=== PATIENT | male | born 1995 | race African-American/Black ===

== ENCOUNTER 2017-03-19 00:28 | Emergency (ER) | payer OTHER ==
[~2017-03-19] VITALS: Ht 182.9 cm; Wt 80.7 kg
[2017-03-19 00:37] VITALS: TEMP 36.5; Ht 182.9 cm; Wt 80.7 kg
[2017-03-19] MEDS ORDERED: CIPROFLOXACIN HCL 0.3% OP SOLN 2.5 ML BTL OP STA (01:08)
[2017-03-19 01:23] VITALS: BP 134/78; PULSE 84; O2SAT 97
--- NOTE | 2017-03-19 04:17 | EMERGENCY ROOM VISIT NOTE ---
ED Visit Note First contact with patient: 00:40 CHIEF COMPLAINT: Eye pain HISTORY OF PRESENT ILLNESS: This 21-year-old patient presents to the emergency department complaining of pain in the right eye after trying to remove a contact all day who thinks it probably fell out as his vision is back to baseline. There has been a constant moderate pain and irritation, redness and tearing in the eye. There is a mild blurring of vision at times and light bothers the eye. The vision has not been decreased over all. The patient does wear contacts. The patient rates the pain as throbbing and 3/10. The patient has not had previous injuries to this eye. Tetanus shot is up to date. Patient started wearing contacts today. This is his first contact experience. He follows with [facility] ophthalmology. REVIEW OF SYSTEMS: A 6 system review of systems was completed with positives and pertinent negatives listed in the HPI. ALLERGIES: None MEDICATIONS: None PMH: None SOCIAL HISTORY: No drug use PHYSICAL EXAM: Vital Signs: Reviewed Nurse's notes, vital signs stable. Visual acuity reviewed from nursing. GENERAL: This is a pleasant male, in no acute distress, but who is uncomfortable from the eye problem. Well-developed well- nourished. EYES: The pupils are equal round and reactive to light and accommodation. EOMs are full and without tenderness. There is discharge of clear tears from the right eye which is injected and a small subconjunctival hemorrhage at 10:00. There is no foreign body visible under the eyelid even after lid eversion. Funduscopic exam reveals no hemorrhages, papilledema, or other abnormalities. No foreign body was seen embedded in the cornea under slit lamp exam. The cornea was clear and no hyphema was seen. Fluorescein uptake was observed with ultraviolet light significant for a corneal abrasion 7: 00. EMERGENCY DEPARTMENT COURSE: I examined the patient. Alcaine 2 drops were placed in the patient's left eye. A slit lamp exam was performed as above. Ciloxan two drops was placed in the patient's left eye. The patient was discharged home in good condition. Differential diagnosis includes corneal abrasion, corneal ulcer, foreign body, conjunctivitis and other etiologies were considered. DIAGNOSIS: Corneal abrasion of the left eye, subconjunctival hemorrhage left eye DISCHARGE INSTRUCTIONS AND TREATMENT: As below Current/Historical Medications No Active Prescriptions or Reported Meds Allergies Coded Allergies: No Known Allergies (Unverified , 03/19/17) Vital Signs Date Time Temp Pulse Resp B/P (MAP) Pulse Ox O2 Delivery O2 Flow Rate FiO2 03/19/17 01:23 84 20 134/78 97 03/19/17 00:37 36.5 82 18 122/62 97 Room Air Medications Administered Medications (Trade) Dose Ordered Sig/Isaac Route Start Time Stop Time Status Last Admin Dose Admin Ciprofloxacin HCl (Ciprofloxacin 0.3% Op Soln) 2 drops NOW STAT OP 03/19/17 01:08 03/19/17 01:09 DC 03/19/17 01:08 2 DROPS Departure Information Impression Primary Impression: Corneal abrasion, right Dispostion Home / Self-Care Condition GOOD Prescriptions No Active Prescriptions or Reported Meds Referrals No Doctor, Assigned [facility] (PCP) Forms WORK / SCHOOL INSTRUCTIONS, HOME CARE DOCUMENTATION FORM, IMPORTANT VISIT INFORMATION Patient Instructions Corneal Injury, Subconjunctival Hemorrhage, [facility] Additional Instructions Use Ciloxan two drops in right eye every two hours while awake for two days; then two drops every four hours while awake for 5 days. Use Ibuprofen 600 mg or Tylenol 1000 mg every 6 hours as needed for pain ( Maximum 3000 mg Tylenol in 24 hr period). If you wear contacts, no contacts for 2 weeks. Do not touch or rub your eye. Follow-up with your criminal justice department chair in 2-3 days. Call for an appointment. Return to the ED for increasing pain or changes in vision.
== END 2017-03-19 01:25 | disposition home or self-care (01) ==
LOC: C.EDB 00:29 → C.EDC 01:25
DX: S05.01XA Injury of conjunctiva and corneal abrasion without foreign body, right eye, initial encounter (principal); X58.XXXA Exposure to other specified factors, initial encounter